=== PATIENT | female | born 1975 | race Caucasian/White ===

== ENCOUNTER 2017-10-04 11:43 | Emergency (ER) | payer OTHER ==
[~2017-10-04] VITALS: Ht 172.7 cm; Wt 113.4 kg
[~2017-10-04 11:43] MED LIST: ALEVE220 M1; FLEXERIL PO; IBUPROFEN 600600 M1 PO; NORCO 5-325 TA1 EACH PO
[2017-10-04 12:07] LABS: URINE BILIRUBIN NEGATIVE (Negative); URINE BLOOD 3+ (Negative); URINE CLARITY CLEAR; URINE COLOR YELLOW; URINE GLUCOSE-RANDOM* NEGATIVE (Negative); URINE KETONES NEGATIVE (Negative); URINE LEUKOCYTES NEGATIVE (Negative); URINE NITRITE NEGATIVE (Negative); URINE PROTEIN (DIPSTICK) NEGATIVE (Negative); URINE UROBILINOGEN 0.2 E.U./dl (0.2-1.0)
[2017-10-04] MEDS ORDERED: ALLEGRA ALLERG180 MG (12:11)
[2017-10-04 12:24] LABS: SQUAMOUS >10 Many /LPF (0-3)
[2017-10-04 12:26] LABS: CASTS None Seen /LPF (None Seen); CRYSTALS None Seen /LPF (None Seen)
[2017-10-04 12:27] LABS: URINE WBC 6-15 Few /HPF (0-5)
[2017-10-04 12:28] LABS: BACTERIA 1-9 Few /HPF (None Seen)
[2017-10-04 12:31] LABS: ABSOLUTE NEUTROPHILS 3.7 thou/uL (1.4-8.2); EOSINOPHILS 4.1 % (0.0-3.0); HEMATOCRIT 36.1 % (37.0-47.0); HEMOGLOBIN 12.1 gm/dL (12.0-15.0); LYMPHOCYTES 30.8 % (24.0-44.0); MCH 25.2 pg (26.0-34.0); MCHC 33.5 g/dL (28.0-37.0); MONOCYTES 5.8 % (1.0-8.0); PLATELET COUNT 209 thou/uL (150-400); POLYS 58.3 % (36.0-66.0); RBC 4.81 mil/uL (4.20-5.00); RDW 14.9 % (10.5-14.5); WBC 6.3 thou/uL (4.0-11.0)
[2017-10-04 12:36] VITALS: BP 151/86
[2017-10-04 12:45] LABS: CALCIUM 9.5 mg/dL (8.5-10.1); CREATININE 0.8 mg/dL (0.6-1.0); POTASSIUM 3.7 mmol/L (3.5-5.1)
== END 2017-10-04 15:09 | disposition home or self-care (01) ==
LOC: ER 11:43
PROVIDERS: Nurse Practitioner Family
DX: N93.8 Other specified abnormal uterine and vaginal bleeding (principal); N85.8 Other specified noninflammatory disorders of uterus; Z87.442 Personal history of urinary calculi; Z90.49 Acquired absence of other specified parts of digestive tract